=== PATIENT | male | born 1995 | race Caucasian/White ===

== ENCOUNTER 2017-03-12 21:35 | Emergency (ER) | payer SELFPAY ==
[~2017-03-12] VITALS: Ht 180.3 cm; Wt 65.8 kg
[~2017-03-12 21:35] MED LIST: CALC-77 PO; VITA1TAB49 PO
[2017-03-12 22:07] VITALS: BP 138/84
--- NOTE | 2017-03-12 22:54 | PHYS DOC ---
Past Medical History Past Medical History: Other Additional Past Medical Histor: LIVER CIRROSIS, LIVER BIOPSY Past Surgical History: Other Additional Past Surgical Histo: EAR TUBES Alcohol Use: None Drug Use: None Adult General Chief Complaint Chief Complaint: LACERATION/AVULSION [facility] HPI Patient is a 22 year old male since emergency Department stating and 9:00 this morning while he was at work he cut his fifth finger on the right hand with a knife. He states this is not a work comp issue. He states that they have placed Super Glue into the area at that time. He states that he has some numbness and tingling into the finger although has full range of motion of the finger. His able to push down a push up. Patient has brisk cap refill. Patient's last tetanus immunization is unknown. No bleeding is noted from the site. Patient is right-hand dominant. Review of Systems Review of Systems Constitutional: Denies fever or chills [] Eyes: Denies change in visual acuity, redness, or eye pain [] HENT: Denies nasal congestion or sore throat [] Respiratory: Denies cough or shortness of breath [] Cardiovascular: No additional information not addressed in HPI [] GI: Denies abdominal pain, nausea, vomiting, bloody stools or diarrhea [] : Denies dysuria or hematuria [] Musculoskeletal: Denies back pain or joint pain [] Integument: Denies rash or skin lesions. Laceration to right fifth finger Neurologic: Denies headache, focal weakness or sensory changes [] Endocrine: Denies polyuria or polydipsia [] Current Medications Current Medications Current Medications Medications (Trade) Dose Ordered Sig/Shawna Start Time Stop Time Status Last Admin Dose Admin Diphtheria/ Tetanus/Acell Pertussis (Boostrix) 0.5 ml ONCE ONCE 03/12/17 23:00 03/12/17 23:01 DC 03/12/17 23:00 0.5 ML Allergies Allergies Allergies Coded Allergies Type Severity Reaction Last Updated Verified No Known Drug Allergies 11/26/13 No Physical Exam Physical Exam Constitutional: Well developed, well nourished, no acute distress, non-toxic appearance. [] HENT: Normocephalic, atraumatic, bilateral external ears normal, oropharynx moist, no oral exudates, nose normal. [] Eyes: PERRLA, EOMI, conjunctiva normal, no discharge. [] Neck: Normal range of motion, no tenderness, supple, no stridor. [] Cardiovascular:Heart rate regular rhythm, no murmur [] Lungs & Thorax: Bilateral breath sounds clear to auscultation [] Skin: Warm, dry, no erythema, no rash. Patient with a 2 cm laceration to the proximal part of the right fifth finger at the MIP joint. Patient is able to push down with the finger and pressure up with the finger. Cap refills brisk less than 2 seconds. Back: No tenderness Extremities: No tenderness, no cyanosis, no clubbing, ROM intact, no edema. [] Neurologic: Alert and oriented X 3, normal motor function, normal sensory function, no focal deficits noted. [] Psychologic: Affect normal, judgement normal, mood normal. [] Current Patient Data Vital Signs Vital Signs Date Time Temp Pulse Resp B/P (MAP) Pulse Ox O2 Delivery O2 Flow Rate FiO2 03/12/17 22:07 98.9 80 20 99 Room Air 98.9 EKG EKG [] Radiology/Procedures Radiology/Procedures [] Course & Med Decision Making Course & Med Decision Making Pertinent Labs and Imaging studies reviewed. (See chart for details) Site will be cleaned with soap and water and Steri-Strips will be applied over the area. Patient will be updated with a tetanus immunization here in the emergency department. Recommended Tylenol or ibuprofen for pain and discomfort. Ice packs elevation as much as possible. Signs and symptoms of infection to watch for: Redness, warmth, tenderness or any yellow/greenish drainage of a come from the site. Recommended following up to primary care physician next 3-5 days. [] Dragon Disclaimer Dragon Disclaimer This electronic medical record was generated, in whole or in part, using a voice recognition dictation system. Departure Departure Impression: Primary Impression: Laceration of finger of right hand Disposition: 01 HOME, SELF-CARE Condition: STABLE Referrals: LING WILDE APRN (PCP) Patient Instructions: Laceration Care, Adult, [id number], Sterile Tape Wound Closure Additional Instructions: Keep the area clean and dry. Tylenol or ibuprofen for pain and discomfort. Ice packs on 20 minutes off 20 minutes several times a day will also help with pain and discomfort as well as swelling. Clean the site twice daily with soap and water. Watch for signs and symptoms of infection: Redness, warmth, tenderness or any yellow/greenish drainage of a come from the site. If this should occur follow- up through primary care physician immediately. Wear the aluminum splint for the next 5-7 days to allow for healing process. Follow-up to primary care physician next 3-5 days. Return back to emergency prior signs symptoms of become worse. MINH RUBY APRN March 12, 2017 22:54
[2017-03-12] MEDS ORDERED: DIPHTH,PERTUSS(ACELL),TET TOX 0.5 ML DISP.SYRIN. VAX IM ONE (23:00)
== END 2017-03-12 23:12 | disposition home or self-care (01) ==
LOC: ER 21:35
DX: S61.216A Laceration without foreign body of right little finger without damage to nail, initial encounter (principal); Z96.22 Myringotomy tube(s) status; W26.0XXA Contact with knife, initial encounter; Y93.89 Activity, other specified; Y92.89 Other specified places as the place of occurrence of the external cause; Y99.8 Other external cause status
CPT/HCPCS: 29130; 90471; 90715; 99283-25